=== PATIENT | male | born 2005 | race Hispanic/Latino ===

== ENCOUNTER 2025-05-21 09:55 | Emergency (ER) | payer SELFPAY ==
--- NOTE | ~2025-05-21 | CT_ITS ---
Non-contrast CT scan of the Abdomen and Pelvis Clinical indication: Left inguinal pain Technique: 2.5 mm axial scans were obtained through the abdomen and pelvis without intravenous or or al contrast. Dose reduction technique was used on this scan by utilizing automated exposure control a nd iterative reconstruction technique. The dose-length product (DLP) was 206.90 mGy-cm. Findings: Images through the lung bases reveal no abnormalities. There is no evidence of renal or ureteral calculi. The kidneys and the ureters are nondilated. The liver, spleen, pancreas, gallbladder, and adrenals appear normal. There is no aortic aneurysm. There is no evidence of bowel obstruction. Images through the pelvis were performed. There is no evidence of ascites or lymphadenopathy. Urinary bladder unremarkable. No pelvic mass seen. Impression: Unremarkable exam. Reviewed, dictated and finalized at [facility]. Impression: Unremarkable exam.
--- NOTE | ~2025-05-21 | US_ITS ---
US scrotum doppler INDICATION: Left groin strain. TECHNIQUE: Testicular sonogram utilizing grayscale and color Doppler FINDINGS: The testes are normal in size and appearance. No focal lesions are seen. The right testes measures 4.3 x 2.1 x 2.5 centimeters, and the left testis measures 3.7 x 2 x 2.4 cm. There is normal vascular flow to both testes. The right and left epididymides appear normal. There is no varicocele or hydrocele. IMPRESSION: 1. NORMAL TESTICULAR ULTRASOUND. Reviewed, dictated and finalized at location B.
[2025-05-21 10:06] VITALS: BP 132/91; PULSE 68; RESP 16; TEMP 36.6; O2SAT 100
--- NOTE | 2025-05-21 10:16 | ED_ITS ---
HPI - Abdominal Pain General Chief Complaint: Abdominal Pain Stated Complaint: hernia Time Seen by Provider: 05/21/25 09:59 Source: patient Mode of arrival: ambulatory Limitations: no limitations History of Present Illness HPI narrative: Patient is a 19-year-old male who presents the ED with report of left inguinal pain. Patient is primarily Ecuadorean-speaking. [employer] interpreter for the deaf was utilized for assistance with translation. Patient reports having pain and swelling/fullness/bulge throughout his left inguinal region into his left testicle for the past 1 year. States it has been worse over the past 3 weeks. States it only occurs when he is working or straining himself. Denies current pain or bulge. Denies difficulty having bowel movement, constipation. Denies dysuria or hematuria. Denies concern for sexually transmitted infections. Denies nausea, vomiting. Related Data Allergies Allergy/AdvReac Type Severity Reaction Status Date / Time No Known Allergies Allergy Verified 05/21/25 09:58 Review of Systems Review of Systems: All systems reviewed & are unremarkable except as noted in HPI. All systems reviewed & are unremarkable except as noted in HPI and below Exam Narrative: GENERAL: Well appearing, thin, non-toxic, in no acute distress. HEAD: Normocephalic, atraumatic. RESPIRATORY: Airway patent, respirations nonlabored. CARDIOVASCULAR: Regular rate and rhythm without murmurs, rubs, or gallops. ABDOMINAL: Soft, no significant tenderness throughout abdomen currently. No palpable hernia bulge. Nondistended. Normoactive BS. GENITAL: Normal genital exam. Uncircumcised male. No testicular pain or swelling. No TTP. No warmth or erythema throughout perineal region. No genital lesions. MUSCULOSKELETAL: Moves all extremities. No gross deformities. SKIN: Warm, dry, normal color. NEURO: A&O X3. Speech clear. No ataxic movements. PSYCHIATRIC: Appropriate mood and affect. Normal interaction. Course Vital Signs Vital signs: Vital Signs Temperature 97.8 F 05/21/25 10:06 Pulse Rate 68 05/21/25 10:06 Respiratory Rate 16 05/21/25 10:06 Blood Pressure 132/91 H 05/21/25 10:06 Pulse Oximetry 100 05/21/25 10:06 Oxygen Delivery Room Air 05/21/25 10:06 Temperature 97.8 F 05/21/25 10:06 Pulse Rate 60 05/21/25 12:02 Respiratory Rate 18 05/21/25 12:02 Blood Pressure 111/69 05/21/25 12:02 Pulse Oximetry 99 05/21/25 12:02 Oxygen Delivery Room Air 05/21/25 10:06 MDM - Abdominal Pain MDM Narrative Medical decision making narrative: Patient presented to ED with concern for left inguinal hernia. Reports symptoms over 1 year, worsening over past 3 weeks, worse with straining/working. Vital signs stable. Patient currently asymptomatic. No palpable hernia bulge on exam, though I discussed with patient that this does seem like the most likely diagnosis. CT abdomen pelvis unremarkable, no comment on inguinal hernia Ultrasound of scrotum normal. No evidence of torsion UA clear Patient updated on imaging findings. Discussed likelihood of inguinal hernia. Will refer to general surgery. Discussed expectant management. Given strict return precautions. He agrees with plan. Discharged in stable condition. Medical Records Attestation: I reviewed the patient's medical records. Lab Data Attestation: I reviewed the patient's lab results. Labs: Lab Results 05/21/25 Range/Units 10:41 Urine Color Yellow (Yellow) Urine Appearance Clear (Clear) Urine pH 7.0 (5.0-9.0) Ur Specific [place] 1.019 (1.001-1.035) Urine Protein Negative (Negative) mg/dL Urine Glucose (UA) Negative (Negative) mg/dL Urine Ketones Negative (Negative) mg/dL Ur Blood (Man) Negative (Negative) Urine Nitrate Negative (Negative) Urine Bilirubin Negative (Negative) Urine Urobilinogen 0.2 (<2.0) mg/dL Leukocyte Esterase Rfl Negative (Negative) FAROOQ/UL Imaging Data Attestation: I personally reviewed and interpreted this imaging study as follows: Radiologist's impression: ITS Impressions Scrotum Ultrasound 05/21/25 11:00 IMPRESSION: 1. NORMAL TESTICULAR ULTRASOUND. Abdomen/Pelvis CT 05/21/25 11:14 Impression: Unremarkable exam. Discharge Plan Discharge Clinical Impression: Left groin pain Patient Disposition: Home Condition: Stable Instructions: Antibiotic Form, Inguinal Hernia (ED), Testicle Pain (ED) Additional Instructions: Your workup here was reassuring. Your symptoms are most likely related to an inguinal hernia. Limit straining or heavy lifting as much as possible. You may try an [id number] hernia belt to help keep pressure over your left groin when working. You will need to follow-up with a general surgeon for further surgical evaluation. When you do feel the bulge in your left groin, recommend gentle pressure to manipulate bulge back inward. Return to the ED if you experience worsening or severe pain in abdomen or testicles, unable to reduce bulge, swelling of testicles, difficulty urinating, severe constipation, or any other symptoms of concern. Patient Language: Ecuadorean Follow-up/Referrals: Nils Roach MD [Physician] - (GENERAL SURGERY) PHYSICIAN,VENETIAN BLIND MECHANIC [Primary Care Provider] - Time of Disposition: 11:30
[2025-05-21 10:50] LABS: Add Urine Microscopic? NO; Appearance Urine Clear (Clear); Glucose Urine UA Negative (Negative); Leukocyte Esterase Ur Negative LEU/UL (Negative); Nitrate Urine Negative (Negative); Specific Grav Ur 1.019 (1.001-1.035)
[2025-05-21 12:02] VITALS: BP 111/69; PULSE 60; RESP 18; O2SAT 99
== END 2025-05-21 12:03 | disposition home or self-care (01) ==
PROVIDERS: Emergency Provider Physician Assistant
DX: R10.32 Left lower quadrant pain (principal)
CPT/HCPCS: 74176; 76870; 81003; 93976; 99284

== ENCOUNTER 2025-05-28 14:59 | Emergency (ER) | payer SELFPAY ==
--- NOTE | ~2025-05-28 | XR_ITS ---
EXAM/ PROCEDURE: XR forearm LT 2V - 05/28/2025 15:30 CDT HISTORY: 19 years old Male with laceration to L arm COMPARISON: None available TECHNIQUE: Two view(s) FINDINGS/ IMPRESSION: There are no fractures or dislocations.Joint spaces are within normal limits. Reviewed, dictated and finalized at location A.
[2025-05-28 15:18] VITALS: BP 118/80; PULSE 64; RESP 16; TEMP 37; O2SAT 100
--- NOTE | 2025-05-28 15:27 | ED.WOUNDLAC ---
HPI - Wound/Laceration General Chief Complaint: Wound/Laceration <Nila Lopez APRN - Last Filed: 05/28/25 15:28> Stated Complaint: Laceration <Nila Lopez APRN - Last Filed: 05/28/25 15:28> Time Seen by Provider: 05/28/25 15:25 <Nila Lopez APRN - Last Filed: 05/28/25 15:28> Focused HPI: Patient is a 19-year-old [id number], male who presents to the ER after sustaining a laceration to his left arm. He reports he was at home making a chair when his saw slipped. Patient sliced his left forearm on the saw. He endorses full range of motion in his left elbow and left wrist. Patient denies any medical history relevant to this ER visit. He is unsure when his last tetanus shot was administered. GENERAL: Well-appearing, well-nourished, and in no acute distress. HEAD: Normocephalic, atraumatic. CHEST: Clear to auscultation. ?No respiratory distress. HEART: Regular rate and rhythm.? NEURO: ?Alert and oriented x3. Patient screened in triage and initial orders placed.? ?Additional care and disposition to be based upon?diagnostic testing and treatment. <Nila Lopez APRN - Last Filed: 05/28/25 15:28> Related Data Allergies/Adverse Reactions: Allergies Allergy/AdvReac Type Severity Reaction Status Date / Time No Known Allergies Allergy Verified 05/28/25 15:22 <Nila Lopez APRN - Last Filed: 05/28/25 15:28> Review of Systems Review of Systems: All systems reviewed & are unremarkable except as noted in HPI and below <Aubrie Gaitan PA-C - Last Filed: 05/28/25 19:45> PMFSH Past Medical History Medical History: Medical History (Updated 05/28/25 @ 19:44 by Aubrie Gaitan PA-C) No active medical problems <Nila Lopez APRN - Last Filed: 05/28/25 15:28> Social History Social History: Social History (Updated 05/28/25 @ 19:44 by Aubrie Gaitan PA-C) Smoking status: Never smoker <Nila Lopez, SERGING MACHINE OPERATOR AUTOMATIC - Last Filed: 05/28/25 15:28> Exam Narrative: GENERAL: Well-appearing, well-nourished, and in no acute distress. HEAD: Normocephalic, atraumatic. EYES: EOMI. EXTREMITIES: Normal range of motion. No edema. Left forearm with 6 cm linear laceration into subcutaneous tissue SKIN: Warm, dry, no rash. NEURO: No focal deficits. Alert and oriented x3. PSYCH: Normal mood and affect <Aubrie Gaitan PA-C - Last Filed: 05/28/25 19:45> Course Vital Signs Vital signs: Vital Signs Temperature 98.6 F 05/28/25 15:18 Pulse Rate 64 05/28/25 15:18 Respiratory Rate 16 05/28/25 15:18 Blood Pressure 118/80 05/28/25 15:18 Pulse Oximetry 100 05/28/25 15:18 Oxygen Delivery Room Air 05/28/25 15:18 Temperature 98.0 F 05/28/25 19:07 Pulse Rate 66 05/28/25 19:07 Respiratory Rate 16 05/28/25 19:07 Blood Pressure 120/80 05/28/25 19:07 Pulse Oximetry 95 05/28/25 19:07 Oxygen Delivery Room Air 05/28/25 19:07 <Nila Lopez, SERGING MACHINE OPERATOR AUTOMATIC - Last Filed: 05/28/25 15:28> Vital Signs Temperature 98.6 F 05/28/25 15:18 Pulse Rate 64 05/28/25 15:18 Respiratory Rate 16 05/28/25 15:18 Blood Pressure 118/80 05/28/25 15:18 Pulse Oximetry 100 05/28/25 15:18 Oxygen Delivery Room Air 05/28/25 15:18 Temperature 98.0 F 05/28/25 19:07 Pulse Rate 66 05/28/25 19:07 Respiratory Rate 16 05/28/25 19:07 Blood Pressure 120/80 05/28/25 19:07 Pulse Oximetry 95 05/28/25 19:07 Oxygen Delivery Room Air 05/28/25 19:07 <Aubrie Gaitan PA-C - Last Filed: 05/28/25 19:45> Procedures Laceration Laceration 1: Date: 05/28/25 <HO Jimenez Last Filed: 05/28/25 19:45> Time: 19:43 <HO Jimenez Last Filed: 05/28/25 19:45> Site: upper extremity <HO Jimenez Last Filed: 05/28/25 19:45> Side (If applicable): left <HO Jimenez Last Filed: 05/28/25 19:45> Size (cm): 6 <HO Jimenez Last Filed: 05/28/25 19:45> Description: linear <HO Jimenez Last Filed: 05/28/25 19:45> Depth: simple, single layer <HO Jimenez Last Filed: 05/28/25 19:45> Local Anesthetic: lidocaine 1% and with epi <HO Jimenez Last Filed: 05/28/25 19:45> Amount of anesthesia used (mL): 2 <HO Jimenez Last Filed: 05/28/25 19:45> Pre-repair: wound explored and irrigated <HO Jimenez Last Filed: 05/28/25 19:45> ====== Skin Level ======: Skin layer closed with: nylon <HO Jimenez Last Filed: 05/28/25 19:45> Size (cm): 4-0 <HO Jimenez Last Filed: 05/28/25 19:45> Number of sutures: 6 <HO Jimenez Last Filed: 05/28/25 19:45> Technique: simple, interrupted <HO Jimenez Last Filed: 05/28/25 19:45> ====== Subcutaneous Layer ======: ====== Muscle Layer ======: ====== Tendon Layer ======: MDM - Wound/Laceration MDM Narrative Medical decision making narrative: Patient presents the emergency department for laceration to the left forearm. Sustained just prior to arrival. He is neurovascularly intact. Wound was irrigated and closed with sutures. Patient updated on tetanus vaccination. X-ray without acute osseous abnormalities. Educated on further wound care. He is to follow up with primary provider. He was given warnings to return to the ER <Aubrie Gaitan PA-C - Last Filed: 05/28/25 19:45> Differential Diagnosis Differential diagnosis: Likely laceration, abrasion and avulsion of skin <Aubrie Gaitan PA-C - Last Filed: 05/28/25 19:45> Imaging Data Radiologist's impression: EXAM/ PROCEDURE: XR forearm LT 2V - 05/28/2025 15:30 CDT HISTORY: 19 years old Male with laceration to L arm COMPARISON: None available TECHNIQUE: Two view(s) FINDINGS/ IMPRESSION: There are no fractures or dislocations.Joint spaces are within normal limits. <Aubrie Gaitan PA-C - Last Filed: 05/28/25 19:45> Critical Care Time Critical Care Time Critical Care Time: No <Aubrie Gaitan PA-C - Last Filed: 05/28/25 19:45> Discharge Plan Discharge Clinical Impression: Laceration <Nila Lopez APRN - Last Filed: 05/28/25 15:28> Patient Disposition: Home <Nila Lopez APRN - Last Filed: 05/28/25 15:28> Condition: Stable <Nila Lopez APRN - Last Filed: 05/28/25 15:28> Instructions: Antibiotic Form, Care For Your Stitches (ED), Laceration (ED) <Nila Lopez APRN - Last Filed: 05/28/25 15:28> Additional Instructions: Return to the emergency department if you experience fever, redness or swelling of your wound, abnormal drainage from your wound, or any other symptoms that are concerning to you. Apply antibiotic ointment daily. Do not soak the wound. Clean with mild soap and water daily. Take oral antibiotic as prescribed Follow-up with your primary care doctor for suture removal in 10-14 days. <Nila Lopez APRN - Last Filed: 05/28/25 15:28> Patient Language: Croatian <Nila Lopez APRN - Last Filed: 05/28/25 15:28> Prescriptions: New cephalexin 500 mg capsule 500 mg PO Q8H 5 Days Qty: 15 0RF <Nila Lopez APRN - Last Filed: 05/28/25 15:28> Follow-up/Referrals: PHYSICIAN,TRANSIT MIX OPERATOR [Primary Care Provider] - Blas Melgoza MD [Physician] - <Nila Lopez APRN - Last Filed: 05/28/25 15:28>
[2025-05-28] MEDS: TETANUS,DIPHTHERIA,AC PERTUSSIS ADULT (0.5 ML) BOOSTRIX IM (18:57)
[2025-05-28 19:07] VITALS: BP 120/80; PULSE 66; RESP 16; TEMP 36.7; O2SAT 95
[2025-05-28] MEDS: LIDO 1%/EPINEPHRINE 1:100,000 20 ML VIAL 10 ML INFILTRATE (19:20)
== END 2025-05-28 19:56 | disposition home or self-care (01) ==
PROVIDERS: Emergency Provider Physician Assistant
DX: S51.812A Laceration without foreign body of left forearm, initial encounter (principal); Z23 Encounter for immunization; W27.0XXA Contact with workbench tool, initial encounter
CPT/HCPCS: 12002; 73090; 90471; 90715; 99283; J2004

== ENCOUNTER 2025-06-08 12:52 | Emergency (ER) | payer SELFPAY ==
[2025-06-08 13:00] VITALS: BP 117/66; PULSE 63; RESP 16; TEMP 36.7; O2SAT 100
--- NOTE | 2025-06-08 13:55 | ED.GENADULT ---
HPI - General Adult General Chief complaint: Wound/Laceration Stated complaint: pt needs stitches removed Time Seen by Provider: 06/08/25 13:17 History of Present Illness HPI narrative: 19-year-old male presenting for suture removal. No other complaints. Related Data Allergies Allergy/AdvReac Type Severity Reaction Status Date / Time No Known Allergies Allergy Verified 05/28/25 15:22 [facility] Past Medical History Medical History (Updated 06/08/25 @ 13:56 by Messi Santa MD) No active medical problems Social History Social History (Updated 05/28/25 @ 19:44 by Aubrie Gaitan PA-C) Smoking status: Never smoker Exam Narrative: APPEARANCE: No apparent distress. Head: atraumatic. EYES: EOMI, NOSE: Atraumatic NECK: Trachea midline RESPIRATORY: No increased rate of breathing CARDIOVASCULAR: RRR, ABDOMINAL: Non-distended MUSCULOSKELETAl: No obvious deformities NEURO: Alert. Moving 4/4 extremities SKIN:: Well-healed scar over the left forearm with [address] PSYCHIATRIC: Normal affect Course Vital Signs Vital signs: Vital Signs Temperature 98.0 F 06/08/25 13:00 Pulse Rate 63 06/08/25 13:00 Respiratory Rate 16 06/08/25 13:00 Blood Pressure 117/66 06/08/25 13:00 Pulse Oximetry 100 06/08/25 13:00 Oxygen Delivery Room Air 06/08/25 13:00 Temperature 98.0 F 06/08/25 13:00 Pulse Rate 63 06/08/25 13:00 Respiratory Rate 16 06/08/25 13:00 Blood Pressure 117/66 06/08/25 13:00 Pulse Oximetry 100 06/08/25 13:00 Oxygen Delivery Room Air 06/08/25 13:00 Medical Decision Making [facility] Narrative Medical decision making narrative: Sutures removed. Wound healing appropriately. Patient discharged. Vital Signs Vital Signs: Vital Signs Temperature 98.0 F 06/08/25 13:00 Pulse Rate 63 06/08/25 13:00 Respiratory Rate 16 06/08/25 13:00 Blood Pressure 117/66 06/08/25 13:00 Pulse Oximetry 100 06/08/25 13:00 Oxygen Delivery Room Air 06/08/25 13:00 Temperature 98.0 F 06/08/25 13:00 Pulse Rate 63 06/08/25 13:00 Respiratory Rate 16 06/08/25 13:00 Blood Pressure 117/66 06/08/25 13:00 Pulse Oximetry 100 06/08/25 13:00 Oxygen Delivery Room Air 06/08/25 13:00 Discharge Plan Discharge Clinical Impression: Laceration Patient Disposition: Home Condition: Stable Instructions: Antibiotic Form, Laceration (ED) Additional Instructions: Return if you develop signs of infection. Patient Language: Ethiopian Prescriptions: No Action cephalexin 500 mg capsule 500 mg PO Q8H 5 Days Qty: 15 0RF Follow-up/Referrals: PHYSICIAN,[employer] INSTRUMENTS INSPECTOR [Primary Care Provider] -
== END 2025-06-08 14:16 | disposition home or self-care (01) ==
PROVIDERS: Emergency Provider Emergency Medicine
DX: S51.812D Laceration without foreign body of left forearm, subsequent encounter (principal); X58.XXXD Exposure to other specified factors, subsequent encounter
CPT/HCPCS: 15853; 99281